=== PATIENT | male | born 1970 | race Caucasian/White ===

== ENCOUNTER → 2018-01-06 | Outpatient (CLI) | payer SELFPAY ==
[~2018-01-06] MED LIST: ALBU8.5H12 IH; BUDE10.2 INH; HYDR-4309 PO; LORA-802 PO; NABU-1 PO; OMEP40CA48 PO; OXYC-865 PO; PRED20TA6 PO; PROM-110 PO; [UNRECOGNIZED DRUG - CODE] PO
== END ==
LOC: AUD 09:00
PROVIDERS: ATTEND Internal Medicine
DX: Z46.1 Encounter for fitting and adjustment of hearing aid (principal)